=== PATIENT | male | born 2000 | race Caucasian/White ===

== ENCOUNTER 2022-06-13 08:02 | Emergency (ER) | payer OTHER ==
[~2022-06-13] VITALS: Ht 170.2 cm; Wt 109.4 kg
[2022-06-13 11:30] LABS: BASO # 0.1 10^3/uL (0.0-0.2); BASO % 0.7 % (0.0-1.0); EOS # 0.3 10^3/uL (0.0-0.5); EOS % 4.2 % (0.0-3.0); HEMATOCRIT 46.2 % (42.0-52.0); HEMOGLOBIN 15.7 g/dl (13.5-17.5); LYMPH # 1.6 10^3/uL (1.5-5.0); LYMPH % 19.8 % (24.0-44.0); MEAN CORPUSCULAR HEMOGLOBIN 29.9 pg (27.0-33.0); MONO % 12.6 % (2.0-8.0); NEUTROPHILS % 62.1 % (36.0-66.0); PLATELET COUNT, AUTOMATED 239 10^3/uL (150-450); RED BLOOD COUNT 5.25 10^6/uL (4.30-6.10)
[2022-06-13] MEDS ORDERED: NS 1,000 ML IV ONE (11:35)
[2022-06-13] MEDS ORDERED: DICYCLOMINE 10 MG CAP PO ONE (11:45)
[2022-06-13 12:03] LABS: BILIRUBIN,DIRECT 0.5 MG/DL (<0.4); BILIRUBIN,TOTAL 1.2 MG/DL (0.3-1.2); TOTAL PROTEIN 7.3 G/DL (5.7-8.2)
[2022-06-13] MEDS ORDERED: ONDA4TAB6 PO (15:21)
[2022-06-13] MEDS ORDERED: DICY1CAP8 PO (15:21)
[2022-06-13 15:31] VITALS: BP 131/60
== END 2022-06-13 15:53 | disposition home or self-care (01) ==
LOC: M ED 08:02
DX: A08.11 Acute gastroenteropathy due to Norwalk agent (principal); Z79.899 Other long term (current) drug therapy